=== PATIENT | male | born 1980 | race Caucasian/White ===

== ENCOUNTER 2023-07-17 11:16 | Emergency (ER) | payer MEDICAID ==
[~2023-07-17] VITALS: Ht 190.5 cm; Wt 86.4 kg
[2023-07-17 11:50] VITALS: BP 136/83; PULSE 83; RESP 16; TEMP 98.6; O2SAT 99
[2023-07-17] MEDS ORDERED: GABA-530 PO (12:38)
[2023-07-17] MEDS ORDERED: HYDR-3686 PO (12:38)
== END 2023-07-17 12:59 | disposition home or self-care (01) ==
LOC: ER 11:16
DX: F41.9 Anxiety disorder, unspecified (principal)
CPT/HCPCS: 99283

== ENCOUNTER 2023-11-10 20:08 | Emergency (ER) | payer MEDICAID ==
[~2023-11-10] VITALS: Ht 190.5 cm; Wt 81.8 kg
[~2023-11-10 20:08] MED LIST: GABA-530 PO
[2023-11-10 20:41] VITALS: TEMP 98.7
[2023-11-10] MEDS ORDERED: LORazepam 2 mg/ml vial IM ONE (21:40)
[2023-11-10 22:07] LABS: BILIRUBIN,URINE NEGATIVE (Neg); CLARITY,URINE CLEAR (Clear); COLOR,URINE YELLOW (Yellow); GLUCOSE, URINE NEGATIVE (Neg); KETONES,URINE NEGATIVE (Neg); LEUKOCYTE ESTERASE ,URINE NEGATIVE (Neg); NITRITES, URINE NEGATIVE (Neg); OCCULT BLOOD,URINE NEGATIVE (Neg); PH,URINE 5.5 (4.8-8.0); PROTEIN,URINE NEGATIVE (Neg); UROBILINOGEN,URINE 0.2 E.U/dL (0.2-1.0)
[2023-11-10 22:12] LABS: UA COLLECTION TYPE CLN CATCH MIDSTREAM
[2023-11-10 22:24] LABS: URINE AMPHETAMINE SCREEN NEGATIVE (Neg); URINE BARBITUATE SCREEN NEGATIVE (Neg); URINE BENZODIAZEPINES SCREEN NEGATIVE (Neg); URINE CANNABINOID SCREEN POSITIVE (Neg); URINE COCAINE SCREEN NEGATIVE (Neg); URINE METHADONE SCREEN NEGATIVE (Neg); URINE OPIATE SCREEN NEGATIVE (Neg); URINE PHENCYCLIDINE SCREEN NEGATIVE (Neg)
[2023-11-10 22:33] LABS: BASOPHILS % (AUTO) 0.4 % (0-1); EOSINOPHILS % (AUTO) 0.4 % (0-6); HEMATOCRIT 41.3 % (42.0-52.0); HEMOGLOBIN 13.6 g/dl (14.0-17.9); LYMPHOCYTES # (AUTO) 2.1 X10'3 (1.1-4.8); LYMPHOCYTES % (AUTO) 25.1 % (21-51); MEAN CORPUSCULAR HEMOGLOBIN 30.9 PG (27.0-31.0); MEAN CORPUSCULAR HGB CONC 32.9 g/dL (33.0-36.5); MEAN CORPUSCULAR VOLUME 94.1 FL (78-98); MEAN PLATELET VOLUME 7.3 FL (7.4-10.4); MONOCYTES # (AUTO) 0.4 X10'3 (0-0.9); MONOCYTES % (AUTO) 5.4 % (2-12); NEUTROPHILS # (AUTO) 5.7 X10'3 (1.8-7.7); NEUTROPHILS % (AUTO) 68.7 % (42-75); PLATELET COUNT 341 X10'3 (140-440); RED BLOOD COUNT 4.38 X10'6 (4.70-6.10); RED CELL DISTRIBUTION WIDTH 13.9 % (11.5-14.5); WHITE BLOOD COUNT 8.2 X10'3 (4.5-11.0)
[2023-11-10 22:51] LABS: ALBUMIN 4.4 G/DL (3.4-5.0); ANION GAP 11 (8-16); BLOOD UREA NITROGEN 12 MG/DL (7-18); BUN/CREATININE RATIO 9.8 (10.0-20.0); CALCIUM 8.6 MG/DL (8.5-10.1); CHLORIDE 104 MMOL/L (99-107); CREATININE 1.23 MG/DL (0.60-1.10); ETHANOL 51 MG/DL (<10); GLUCOSE 96 MG/DL (70-104); POTASSIUM 3.9 MMOL/L (3.5-5.1); SALICYLATE 3.4 MG/DL (4.0-20.0); SODIUM 142 MMOL/L (135-145); TOTAL CARBON DIOXIDE 27.1 MMOL/L (24-32); eCRCL 91 ML/MIN; eGFR 65 ML/MIN
[2023-11-10 22:55] LABS: ACETAMINOPHEN < 2.0 UG/ML (10-30)
[2023-11-10] MEDS ORDERED: CHLO25CA10 PO (23:39)
[2023-11-10] MEDS ORDERED: chlordiazePOXIDE 25mg capsule PO ONE (23:40)
[2023-11-10] MEDS ORDERED: LORazepam 2 mg/ml vial IV ONE (23:40)
[2023-11-11] MEDS ORDERED: CHLO25CA10 PO (00:28)
[2023-11-11 00:36] VITALS: BP 111/84; PULSE 87; RESP 16; O2SAT 99
== END 2023-11-11 00:40 | disposition home or self-care (01) ==
LOC: ER 20:08
DX: F10.239 Alcohol dependence with withdrawal, unspecified (principal); F41.9 Anxiety disorder, unspecified; Z79.899 Other long term (current) drug therapy; Y90.9 Presence of alcohol in blood, level not specified
CPT/HCPCS: 36415; 80048; 80305; 80320; 80329; 81003; 85025; 96374; 99283; J2060